=== PATIENT | male | born 1950 | race Caucasian/White ===

== ENCOUNTER 2023-03-28 05:19 | Emergency (ER) | payer MEDICARE, OTHER, SELFPAY ==
[2023-03-28] VITALS (89 sets, daily range): BP systolic 76–141; BP diastolic 35–65; PULSE 54–102; RESP 14–33; O2SAT 94–100; BMI 27.4
--- NOTE | 2023-03-28 05:23 | DI.RAD.S_ITS ---
PROCEDURE: XR CHEST 1V INDICATIONS: chest pain TECHNIQUE: One view of the chest was acquired. COMPARISON: None. FINDINGS: Surgical changes and devices: None. Lungs and pleura: Lungs are clear. No pleural effusions or pneumothorax. Mediastinum: Mediastinal contours appear normal. Heart size is normal. Bones and chest wall: No suspicious bony lesions. Overlying soft tissues appear unremarkable. IMPRESSION: No acute cardiopulmonary disease. No significant discrepancy with the conference manager radiology preliminary report. Dictated by: Dajuan Lewis M.D. on 03/28/2023 at 8:11 Approved by: Dajuan Lewis M.D. on 03/28/2023 at 8:11
--- NOTE | 2023-03-28 05:27 | ED_ITS ---
HPI - Chest Pain <Angelita Cruz DO - Last Filed: 03/29/23 08:35> General Chief Complaint: Chest Pain Stated Complaint: heartattack Time Seen by Provider: 03/28/23 05:26 History of Present Illness HPI narrative: This is a 72-year-old male with history of LAD stent 25 years ago, hypertension and dyslipidemia. Patient states he is often anticoagulants for at least 15 years. Patient states he developed chest pressure about an hour prior to arrival he feels short of breath he was sweaty, he is nauseated he has not been vomiting. He is felt dizzy but has not passed out. Patient denies any new swelling in his extremities. He denies any fevers, chills cold cough or congestion. Patient denies any GI or urinary symptoms otherwise besides nausea. Patient states he did not have a heart attack last time just had heart catheterization and stent placed. Patient states he is had left hip repair remotely, and right ankle surgery. He denies any drug allergies. Denies any tobacco, alcohol or illicit. Does not follow with cardiology regularly he does have a primary care in [place] where he livess. He is currently visiting the area. He did drive himself. Related Data Allergies Allergy/AdvReac Type Severity Reaction Status Date / Time No Known Allergies Allergy Verified 03/28/23 05:45 Review of Systems <Angelita Cruz DO - Last Filed: 03/29/23 08:35> Review of Systems ROS Unobtainable: All systems reviewed & are unremarkable except as noted in HPI and below Patient History <Angelita Cruz DO - Last Filed: 03/29/23 08:35> Social History Smoking Status: Current every day smoker Exam <Angelita Cruz DO - Last Filed: 03/29/23 08:35> Narrative Exam Narrative: GENERAL: Alert and oriented x three, elderly male slightly diaphoretic. HEENT: Head normocephalic, atraumatic, EOMI, pupils reactive, face symmetric, moist mucous membranes NECK: Supple, full range of motion CARDIOVASCULAR: Regular rate and rhythm without murmurs, rubs or gallops. No JVD. Swelling bilateral lower extremities. RESPIRATORY: Breath sounds equal bilaterally, no wheezes rales or rhonchi. Tachypneic. No accessory muscle use. ABDOMEN: Soft, nontender. Normoactive bowel sounds all 4 quadrants. No guarding or rebound, rigidity, no mass, no bruit or pulsatile mass. : No CVA tenderness EXTREMITIES: Normal range of motion, no clubbing or edema. Neurovascularly intact. 2+ pulses bilateral lower extremities. NEUROLOGICAL: Cranial nerves II through XII grossly intact. Moving all extremities SKIN: Warm, dry, no petechiae, no rashes or lesions. Initial Vital Signs Initial Vital Signs: Vital Signs Pulse Rate 74 03/28/23 05:31 Respiratory Rate 33 H 03/28/23 05:31 Blood Pressure 141/65 H 03/28/23 05:31 Pulse Oximetry 100 03/28/23 05:31 Oxygen Delivery Method Room Air 03/28/23 05:31 <Jair Reis DO - Last Filed: 03/28/23 18:02> Initial Vital Signs Initial Vital Signs: Vital Signs Pulse Rate 74 03/28/23 05:31 Respiratory Rate 33 H 03/28/23 05:31 Blood Pressure 141/65 H 03/28/23 05:31 Pulse Oximetry 100 03/28/23 05:31 Oxygen Delivery Method Room Air 03/28/23 05:31 Course <Angelita Cruz, DO - Last Filed: 03/29/23 08:35> Orders Ordered: Discontinued Medications Aspirin (Aspirin 81 Mg Chew Tab) 324 mg PO NOW ONE Stop: 03/28/23 05:24 Last Admin: 03/28/23 05:35 Dose: 324 mg Documented By: Fentanyl (Fentanyl 100 Mcg/2 Ml Inj) 50 mcg IV NOW ONE Stop: 03/28/23 05:49 Last Admin: 03/28/23 05:51 Dose: 50 mcg Documented By: Fentanyl (Fentanyl 100 Mcg/2 Ml Inj) 25 mcg IV NOW ONE Stop: 03/28/23 06:05 Last Admin: 03/28/23 06:09 Dose: 25 mcg Documented By: Fentanyl (Fentanyl 100 Mcg/2 Ml Inj) 25 mcg IV NOW ONE Stop: 03/28/23 06:05 Last Admin: 03/28/23 07:14 Dose: Not Given Documented By: Fentanyl (Fentanyl 100 Mcg/2 Ml Inj) 75 mcg 1 mcg/kg (75 mcg) IV NOW ONE Stop: 03/28/23 06:29 Last Admin: 03/28/23 06:33 Dose: 75 mcg Documented By: Heparin Sodium (Porcine) (Heparin 5,000 Unit/Ml Vial) 4,000 unit IV NOW ONE Stop: 03/28/23 11:26 Last Admin: 03/28/23 11:40 Dose: 4,000 unit Documented By: RB Sodium Chloride (Normal Saline 0.9%) 1,000 mls @ 1,000 mls/hr IV BOLUS ONE Stop: 03/28/23 06:47 Last Infusion: 03/28/23 06:49 Dose: 0 mls/hr Documented By: Admin: 03/28/23 05:45 Dose: 1,000 mls/hr Documented By: Sodium Chloride (Normal Saline 0.9%) 1,000 mls @ 1,000 mls/hr IV BOLUS ONE Stop: 03/28/23 08:34 Last Infusion: 03/28/23 08:50 Dose: 0 mls/hr Documented By: Admin: 03/28/23 07:44 Dose: 1,000 mls/hr Documented By: ROME Ceftriaxone Sodium 1,000 mg/ (Sodium Chloride) 100 mls @ 200 mls/hr IV NOW ONE Stop: 03/28/23 08:07 Last Infusion: 03/28/23 09:22 Dose: 0 mls/hr Documented By: Admin: 03/28/23 08:49 Dose: 200 mls/hr Documented By: ROME Sodium Chloride (Normal Saline 0.9%) 1,000 mls @ 125 mls/hr IV CONT QUOC Last Infusion: 03/28/23 18:56 Dose: 0 mls/hr Documented By: Admin: 03/28/23 10:25 Dose: 125 mls/hr Documented By: NEW Vancomycin HCl (Vancomycin) 1,000 mg in 200 mls @ 200 mls/hr IV NOW ONE Stop: 03/28/23 11:07 Last Infusion: 03/28/23 11:42 Dose: 0 mls/hr Documented By: Admin: 03/28/23 10:25 Dose: 200 mls/hr Documented By: NEW Heparin Sodium/Dextrose (Heparin Drip) 25,000 unit in 500 mls @ 17.962 mls/hr IV CONT QUOC; Protocol Last Titration: 03/28/23 18:59 Dose: 12 units/kg/hr, 17.962 mls/hr Documented By: KIM Co-signed By: ROME Admin: 03/28/23 11:43 Dose: 12 units/kg/hr, 17.962 mls/hr Documented By: RB Co-signed By: NEW Nitroglycerin (Nitroglycerin 0.4 Mg Sl Tab) 0.4 mg SL [id number] PRN PRN Reason: Chest Pain Last Admin: 03/28/23 05:35 Dose: 0.4 mg Documented By: Vital Signs Vital signs: Vital Signs - 8 hr 03/28/23 10:00 03/28/23 10:00 03/28/23 10:05 Pulse Rate 85 87 Respiratory Rate 23 24 Blood Pressure 105/52 L Pulse Oximetry 98 98 03/28/23 10:05 03/28/23 10:10 03/28/23 10:10 Pulse Rate 85 Respiratory Rate 25 H Blood Pressure 103/51 L 102/50 L Pulse Oximetry 97 03/28/23 10:15 03/28/23 10:15 03/28/23 10:20 Pulse Rate 88 89 Respiratory Rate 25 H 25 H Blood Pressure 100/51 L Pulse Oximetry 97 98 03/28/23 10:20 03/28/23 10:25 03/28/23 10:25 Pulse Rate 88 Respiratory Rate 25 H Blood Pressure 95/49 L 96/47 L Pulse Oximetry 98 03/28/23 10:30 03/28/23 10:30 03/28/23 10:35 Pulse Rate 87 Respiratory Rate 22 Blood Pressure 102/51 L 89/47 L Pulse Oximetry 98 03/28/23 10:35 03/28/23 10:40 03/28/23 10:40 Pulse Rate 91 H 89 Respiratory Rate 24 24 Blood Pressure 97/50 L Pulse Oximetry 98 97 03/28/23 10:45 03/28/23 10:45 03/28/23 10:50 Pulse Rate 89 Respiratory Rate 24 Blood Pressure 96/48 L 101/52 L Pulse Oximetry 97 03/28/23 10:50 03/28/23 10:55 03/28/23 10:55 Pulse Rate 92 H 91 H Respiratory Rate 27 H 27 H Blood Pressure 100/52 L Pulse Oximetry 96 96 03/28/23 11:00 03/28/23 11:00 03/28/23 11:05 Pulse Rate 91 H 92 H Respiratory Rate 26 H 24 Blood Pressure 102/50 L Pulse Oximetry 97 99 03/28/23 11:05 03/28/23 11:10 03/28/23 11:10 Pulse Rate 91 H Respiratory Rate 26 H Blood Pressure 104/51 L 103/51 L Pulse Oximetry 97 03/28/23 11:15 03/28/23 11:15 03/28/23 11:41 Pulse Rate 91 H Respiratory Rate 26 H Blood Pressure 102/49 L 105/45 L Pulse Oximetry 99 03/28/23 11:41 03/28/23 11:45 03/28/23 11:45 Pulse Rate 91 H 90 Respiratory Rate 26 H 23 Blood Pressure 97/51 L Pulse Oximetry 97 03/28/23 11:50 03/28/23 11:50 03/28/23 11:55 Pulse Rate 87 88 Respiratory Rate 27 H 26 H Blood Pressure 91/47 L Pulse Oximetry 97 96 03/28/23 11:55 03/28/23 12:00 03/28/23 12:00 Pulse Rate 92 H Respiratory Rate 26 H Blood Pressure 93/47 L 80/35 L Pulse Oximetry 97 03/28/23 12:03 03/28/23 12:03 03/28/23 12:04 Pulse Rate 90 Respiratory Rate 24 Blood Pressure 96/46 L 89/44 L Pulse Oximetry 96 03/28/23 12:04 03/28/23 12:06 03/28/23 12:06 Pulse Rate 89 91 H Respiratory Rate 25 H 23 Blood Pressure 96/54 L Pulse Oximetry 96 96 03/28/23 12:08 03/28/23 12:08 03/28/23 12:10 Pulse Rate 90 Respiratory Rate 23 Blood Pressure 97/52 L 98/51 L Pulse Oximetry 96 03/28/23 12:10 03/28/23 12:12 03/28/23 12:12 Pulse Rate 89 88 Respiratory Rate 24 24 Blood Pressure 100/50 L Pulse Oximetry 96 96 03/28/23 12:14 03/28/23 12:14 03/28/23 12:16 Pulse Rate 90 Respiratory Rate 22 Blood Pressure 100/51 L 97/51 L Pulse Oximetry 96 03/28/23 12:16 03/28/23 12:18 03/28/23 12:18 Pulse Rate 89 90 Respiratory Rate 24 24 Blood Pressure 97/50 L Pulse Oximetry 96 96 03/28/23 12:20 03/28/23 12:20 03/28/23 12:22 Pulse Rate 90 90 Respiratory Rate 24 24 Blood Pressure 102/50 L Pulse Oximetry 96 96 03/28/23 12:22 03/28/23 12:24 03/28/23 12:24 Pulse Rate 92 H Respiratory Rate 25 H Blood Pressure 103/52 L 106/53 L Pulse Oximetry 96 03/28/23 12:26 03/28/23 12:26 03/28/23 12:28 Pulse Rate 92 H 91 H Respiratory Rate 26 H 25 H Blood Pressure 102/55 L Pulse Oximetry 96 96 03/28/23 12:28 03/28/23 12:30 03/28/23 12:30 Pulse Rate 91 H Respiratory Rate 25 H Blood Pressure 101/54 L 104/55 L Pulse Oximetry 97 03/28/23 12:32 03/28/23 12:32 03/28/23 12:34 Pulse Rate 91 H 91 H Respiratory Rate 25 H 25 H Blood Pressure 104/54 L Pulse Oximetry 97 97 03/28/23 12:34 03/28/23 12:36 03/28/23 12:36 Pulse Rate 90 Respiratory Rate 25 H Blood Pressure 103/53 L 103/51 L Pulse Oximetry 97 03/28/23 12:38 03/28/23 12:38 03/28/23 12:46 Pulse Rate 91 H 90 Respiratory Rate 27 H 25 H Blood Pressure 103/52 L Pulse Oximetry 97 96 03/28/23 12:46 Pulse Rate Respiratory Rate Blood Pressure 103/51 L Pulse Oximetry <Jair Reis DO - Last Filed: 03/28/23 18:02> Orders Ordered: Discontinued Medications Aspirin (Aspirin 81 Mg Chew Tab) 324 mg PO NOW ONE Stop: 03/28/23 05:24 Last Admin: 03/28/23 05:35 Dose: 324 mg Documented By: Fentanyl (Fentanyl 100 Mcg/2 Ml Inj) 50 mcg IV NOW ONE Stop: 03/28/23 05:49 Last Admin: 03/28/23 05:51 Dose: 50 mcg Documented By: Fentanyl (Fentanyl 100 Mcg/2 Ml Inj) 25 mcg IV NOW ONE Stop: 03/28/23 06:05 Last Admin: 03/28/23 06:09 Dose: 25 mcg Documented By: Fentanyl (Fentanyl 100 Mcg/2 Ml Inj) 25 mcg IV NOW ONE Stop: 03/28/23 06:05 Last Admin: 03/28/23 07:14 Dose: Not Given Documented By: Fentanyl (Fentanyl 100 Mcg/2 Ml Inj) 75 mcg 1 mcg/kg (75 mcg) IV NOW ONE Stop: 03/28/23 06:29 Last Admin: 03/28/23 06:33 Dose: 75 mcg Documented By: Heparin Sodium (Porcine) (Heparin 5,000 Unit/Ml Vial) 4,000 unit IV NOW ONE Stop: 03/28/23 11:26 Last Admin: 03/28/23 11:40 Dose: 4,000 unit Documented By: RB Sodium Chloride (Normal Saline 0.9%) 1,000 mls @ 1,000 mls/hr IV BOLUS ONE Stop: 03/28/23 06:47 Last Infusion: 03/28/23 06:49 Dose: 0 mls/hr Documented By: Admin: 03/28/23 05:45 Dose: 1,000 mls/hr Documented By: Sodium Chloride (Normal Saline 0.9%) 1,000 mls @ 1,000 mls/hr IV BOLUS ONE Stop: 03/28/23 08:34 Last Infusion: 03/28/23 08:50 Dose: 0 mls/hr Documented By: Admin: 03/28/23 07:44 Dose: 1,000 mls/hr Documented By: RB Ceftriaxone Sodium 1,000 mg/ (Sodium Chloride) 100 mls @ 200 mls/hr IV NOW ONE Stop: 03/28/23 08:07 Last Infusion: 03/28/23 09:22 Dose: 0 mls/hr Documented By: Admin: 03/28/23 08:49 Dose: 200 mls/hr Documented By: RB Sodium Chloride (Normal Saline 0.9%) 1,000 mls @ 125 mls/hr IV CONT QUOC Last Infusion: 03/28/23 18:56 Dose: 0 mls/hr Documented By: Admin: 03/28/23 10:25 Dose: 125 mls/hr Documented By: NEW Vancomycin HCl (Vancomycin) 1,000 mg in 200 mls @ 200 mls/hr IV NOW ONE Stop: 03/28/23 11:07 Last Infusion: 03/28/23 11:42 Dose: 0 mls/hr Documented By: Admin: 03/28/23 10:25 Dose: 200 mls/hr Documented By: NEW Heparin Sodium/Dextrose (Heparin Drip) 25,000 unit in 500 mls @ 17.962 mls/hr IV CONT QUOC; Protocol Last Titration: 03/28/23 18:59 Dose: 12 units/kg/hr, 17.962 mls/hr Documented By: KIM Co-signed By: RB Admin: 03/28/23 11:43 Dose: 12 units/kg/hr, 17.962 mls/hr Documented By: ROME Co-signed By: NEW Nitroglycerin (Nitroglycerin 0.4 Mg Sl Tab) 0.4 mg SL [id number] PRN PRN Reason: Chest Pain Last Admin: 03/28/23 05:35 Dose: 0.4 mg Documented By: Vital Signs Vital signs: Vital Signs - 8 hr 03/28/23 10:00 03/28/23 10:00 03/28/23 10:05 Pulse Rate 85 87 Respiratory Rate 23 24 Blood Pressure 105/52 L Pulse Oximetry 98 98 03/28/23 10:05 03/28/23 10:10 03/28/23 10:10 Pulse Rate 85 Respiratory Rate 25 H Blood Pressure 103/51 L 102/50 L Pulse Oximetry 97 03/28/23 10:15 03/28/23 10:15 03/28/23 10:20 Pulse Rate 88 89 Respiratory Rate 25 H 25 H Blood Pressure 100/51 L Pulse Oximetry 97 98 03/28/23 10:20 03/28/23 10:25 03/28/23 10:25 Pulse Rate 88 Respiratory Rate 25 H Blood Pressure 95/49 L 96/47 L Pulse Oximetry 98 03/28/23 10:30 03/28/23 10:30 03/28/23 10:35 Pulse Rate 87 Respiratory Rate 22 Blood Pressure 102/51 L 89/47 L Pulse Oximetry 98 03/28/23 10:35 03/28/23 10:40 03/28/23 10:40 Pulse Rate 91 H 89 Respiratory Rate 24 24 Blood Pressure 97/50 L Pulse Oximetry 98 97 03/28/23 10:45 03/28/23 10:45 03/28/23 10:50 Pulse Rate 89 Respiratory Rate 24 Blood Pressure 96/48 L 101/52 L Pulse Oximetry 97 03/28/23 10:50 03/28/23 10:55 03/28/23 10:55 Pulse Rate 92 H 91 H Respiratory Rate 27 H 27 H Blood Pressure 100/52 L Pulse Oximetry 96 96 03/28/23 11:00 03/28/23 11:00 03/28/23 11:05 Pulse Rate 91 H 92 H Respiratory Rate 26 H 24 Blood Pressure 102/50 L Pulse Oximetry 97 99 03/28/23 11:05 03/28/23 11:10 03/28/23 11:10 Pulse Rate 91 H Respiratory Rate 26 H Blood Pressure 104/51 L 103/51 L Pulse Oximetry 97 03/28/23 11:15 03/28/23 11:15 03/28/23 11:41 Pulse Rate 91 H Respiratory Rate 26 H Blood Pressure 102/49 L 105/45 L Pulse Oximetry 99 03/28/23 11:41 03/28/23 11:45 03/28/23 11:45 Pulse Rate 91 H 90 Respiratory Rate 26 H 23 Blood Pressure 97/51 L Pulse Oximetry 97 03/28/23 11:50 03/28/23 11:50 03/28/23 11:55 Pulse Rate 87 88 Respiratory Rate 27 H 26 H Blood Pressure 91/47 L Pulse Oximetry 97 96 03/28/23 11:55 03/28/23 12:00 03/28/23 12:00 Pulse Rate 92 H Respiratory Rate 26 H Blood Pressure 93/47 L 80/35 L Pulse Oximetry 97 03/28/23 12:03 03/28/23 12:03 03/28/23 12:04 Pulse Rate 90 Respiratory Rate 24 Blood Pressure 96/46 L 89/44 L Pulse Oximetry 96 03/28/23 12:04 03/28/23 12:06 03/28/23 12:06 Pulse Rate 89 91 H Respiratory Rate 25 H 23 Blood Pressure 96/54 L Pulse Oximetry 96 96 03/28/23 12:08 03/28/23 12:08 03/28/23 12:10 Pulse Rate 90 Respiratory Rate 23 Blood Pressure 97/52 L 98/51 L Pulse Oximetry 96 03/28/23 12:10 03/28/23 12:12 03/28/23 12:12 Pulse Rate 89 88 Respiratory Rate 24 24 Blood Pressure 100/50 L Pulse Oximetry 96 96 03/28/23 12:14 03/28/23 12:14 03/28/23 12:16 Pulse Rate 90 Respiratory Rate 22 Blood Pressure 100/51 L 97/51 L Pulse Oximetry 96 03/28/23 12:16 03/28/23 12:18 03/28/23 12:18 Pulse Rate 89 90 Respiratory Rate 24 24 Blood Pressure 97/50 L Pulse Oximetry 96 96 03/28/23 12:20 03/28/23 12:20 03/28/23 12:22 Pulse Rate 90 90 Respiratory Rate 24 24 Blood Pressure 102/50 L Pulse Oximetry 96 96 03/28/23 12:22 03/28/23 12:24 03/28/23 12:24 Pulse Rate 92 H Respiratory Rate 25 H Blood Pressure 103/52 L 106/53 L Pulse Oximetry 96 03/28/23 12:26 03/28/23 12:26 03/28/23 12:28 Pulse Rate 92 H 91 H Respiratory Rate 26 H 25 H Blood Pressure 102/55 L Pulse Oximetry 96 96 03/28/23 12:28 03/28/23 12:30 03/28/23 12:30 Pulse Rate 91 H Respiratory Rate 25 H Blood Pressure 101/54 L 104/55 L Pulse Oximetry 97 03/28/23 12:32 03/28/23 12:32 03/28/23 12:34 Pulse Rate 91 H 91 H Respiratory Rate 25 H 25 H Blood Pressure 104/54 L Pulse Oximetry 97 97 03/28/23 12:34 03/28/23 12:36 03/28/23 12:36 Pulse Rate 90 Respiratory Rate 25 H Blood Pressure 103/53 L 103/51 L Pulse Oximetry 97 03/28/23 12:38 03/28/23 12:38 03/28/23 12:46 Pulse Rate 91 H 90 Respiratory Rate 27 H 25 H Blood Pressure 103/52 L Pulse Oximetry 97 96 03/28/23 12:46 Pulse Rate Respiratory Rate Blood Pressure 103/51 L Pulse Oximetry MDM - Chest Pain <Angelita Cruz DO - Last Filed: 03/29/23 08:35> Lab Data 03/28/23 05:27 03/28/23 05:27 Labs: Lab Results 0503/28/23 03/28/23 Range/Units 05:27 05:27 05:27 WBC 13.4 H (4.5-11.0) X10^3/uL RBC 5.18 (4.5-5.9) X10^6/uL Hgb 12.9 L (13.5-17.5) g/dL Hct 40.6 L (41-53) % MCV 78.4 L (80-100) fL MCH 25.0 L (26-34) PG MCHC 31.9 (30-36) % RDW 18.2 H (11.6-14.8) % Plt Count 299 (150-400) X10^3/uL Neut % (Auto) 44.6 L (50-75) % Lymph % (Auto) 38.8 (25-40) % [place] % (Auto) 10.4 (3-14) % Eos % (Auto) 5.5 H (2-4) % Baso % (Auto) 0.7 (0-2) % Neut # (Auto) 6000 (7524-0963) /uL Lymph # (Auto) 5200 H (4479-2017) /uL [place] # (Auto) 1400 H (0-900) /uL Eos # (Auto) 700 H (0-450) /uL Baso # (Auto) 100 (0-100) /uL ESR (0-15) MM/HR PT 19.9 H (10.1-12.7) SECONDS INR 1.7 H (0.9-1.3) APTT 24 L (26-36) SECONDS D-Dimer (<500) ng/ml Sodium 136 L (137-145) mmol/L Potassium 4.4 (3.4-5.1) mmol/L Chloride 102 (98-107) mmol/L Carbon Dioxide 18 L (22-32) mmol/L BUN 25 H (9-20) mg/dL Creatinine 1.12 (0.66-1.25) mg/dL Estimated GFR > 60 (>60) mL/min BUN/Creatinine Ratio 22.3 H (6-22) Glucose 111 H (80-110) mg/dL Lactate (0.7-2.1) mmol/L Calcium 10.1 (8.4-10.2) mg/dL Magnesium 1.8 (1.6-2.3) mg/dL Total Bilirubin 1.2 (0.2-1.3) mg/dL AST 100 H (17-59) IU/L ALT 98 H (<50) IU/L Alkaline Phosphatase 97 (38-126) U/L Total Creatine Kinase 162 (55-170) U/L CK-MB (CK-2) 2.25 (<2.37) ng/mL CK-MB (CK-2) Rel Index 1.4 L (1.5-5.0) % Troponin I < 0.012 (0.01-0.034) ng/mL C-Reactive Protein (<1.0) mg/dL NT-Pro-B Natriuret Pep (<125) pg/mL Total Protein 6.5 (6.3-8.2) g/dL Albumin 4.3 (3.5-5.0) g/dL Globulin 2.2 (1.7-4.1) g/dL Albumin/Globulin Ratio 2.0 (1.0-2.8) Lipase 230 (23-300) U/L Procalcitonin (<0.5) ng/mL Ur Bilirubin Confirm (Negative) Urine RBC (0-5/HPF) Urine WBC (0-5/HPF) Ur Squamous Epith Cells (0-5/HPF) Urine Bacteria (None) Ur Culture Indicated? SARS-CoV-2 (PCR) (Negative) Blood Type Antibody Screen 03/28/23 03/28/23 03/28/23 Range/Units 05:27 05:27 05:33 WBC (4.5-11.0) X10^3/uL RBC (4.5-5.9) X10^6/uL Hgb (13.5-17.5) g/dL Hct (41-53) % MCV (80-100) fL MCH (26-34) PG MCHC (30-36) % RDW (11.6-14.8) % Plt Count (150-400) X10^3/uL Neut % (Auto) (50-75) % Lymph % (Auto) (25-40) % [place] % (Auto) (3-14) % Eos % (Auto) (2-4) % Baso % (Auto) (0-2) % Neut # (Auto) (0476-7015) /uL Lymph # (Auto) (0506-0044) /uL [place] # (Auto) (0-900) /uL Eos # (Auto) (0-450) /uL Baso # (Auto) (0-100) /uL ESR (0-15) MM/HR PT (10.1-12.7) SECONDS INR (0.9-1.3) APTT (26-36) SECONDS D-Dimer 615 H (<500) ng/ml Sodium (137-145) mmol/L Potassium (3.4-5.1) mmol/L Chloride (98-107) mmol/L Carbon Dioxide (22-32) mmol/L BUN (9-20) mg/dL Creatinine (0.66-1.25) mg/dL Estimated GFR (>60) mL/min BUN/Creatinine Ratio (6-22) Glucose (80-110) mg/dL Lactate 5.7 H* (0.7-2.1) mmol/L Calcium (8.4-10.2) mg/dL Magnesium (1.6-2.3) mg/dL Total Bilirubin (0.2-1.3) mg/dL AST (17-59) IU/L ALT (<50) IU/L Alkaline Phosphatase (38-126) U/L Total Creatine Kinase (55-170) U/L CK-MB (CK-2) (<2.37) ng/mL CK-MB (CK-2) Rel Index (1.5-5.0) % Troponin I (0.01-0.034) ng/mL C-Reactive Protein (<1.0) mg/dL NT-Pro-B Natriuret Pep 41 (<125) pg/mL Total Protein (6.3-8.2) g/dL Albumin (3.5-5.0) g/dL Globulin (1.7-4.1) g/dL Albumin/Globulin Ratio (1.0-2.8) Lipase (23-300) U/L Procalcitonin (<0.5) ng/mL Ur Bilirubin Confirm (Negative) Urine RBC (0-5/HPF) Urine WBC (0-5/HPF) Ur Squamous Epith Cells (0-5/HPF) Urine Bacteria (None) Ur Culture Indicated? SARS-CoV-2 (PCR) (Negative) Blood Type Antibody Screen 03/28/23 03/28/23 03/28/23 Range/Units 05:37 06:01 08:00 WBC (4.5-11.0) X10^3/uL RBC (4.5-5.9) X10^6/uL Hgb (13.5-17.5) g/dL Hct (41-53) % MCV (80-100) fL MCH (26-34) PG MCHC (30-36) % RDW (11.6-14.8) % Plt Count (150-400) X10^3/uL Neut % (Auto) (50-75) % Lymph % (Auto) (25-40) % [place] % (Auto) (3-14) % Eos % (Auto) (2-4) % Baso % (Auto) (0-2) % Neut # (Auto) (6658-4347) /uL Lymph # (Auto) (4723-7716) /uL [place] # (Auto) (0-900) /uL Eos # (Auto) (0-450) /uL Baso # (Auto) (0-100) /uL ESR (0-15) MM/HR PT (10.1-12.7) SECONDS INR (0.9-1.3) APTT (26-36) SECONDS D-Dimer (<500) ng/ml Sodium (137-145) mmol/L Potassium (3.4-5.1) mmol/L Chloride (98-107) mmol/L Carbon Dioxide (22-32) mmol/L BUN (9-20) mg/dL Creatinine (0.66-1.25) mg/dL Estimated GFR (>60) mL/min BUN/Creatinine Ratio (6-22) Glucose (80-110) mg/dL Lactate (0.7-2.1) mmol/L Calcium (8.4-10.2) mg/dL Magnesium (1.6-2.3) mg/dL Total Bilirubin (0.2-1.3) mg/dL AST (17-59) IU/L ALT (<50) IU/L Alkaline Phosphatase (38-126) U/L Total Creatine Kinase (55-170) U/L CK-MB (CK-2) (<2.37) ng/mL CK-MB (CK-2) Rel Index (1.5-5.0) % Troponin I 0.090 H (0.01-0.034) ng/mL C-Reactive Protein (<1.0) mg/dL NT-Pro-B Natriuret Pep (<125) pg/mL Total Protein (6.3-8.2) g/dL Albumin (3.5-5.0) g/dL Globulin (1.7-4.1) g/dL Albumin/Globulin Ratio (1.0-2.8) Lipase (23-300) U/L Procalcitonin (<0.5) ng/mL Ur Bilirubin Confirm (Negative) Urine RBC (0-5/HPF) Urine WBC (0-5/HPF) Ur Squamous Epith Cells (0-5/HPF) Urine Bacteria (None) Ur Culture Indicated? SARS-CoV-2 (PCR) Negative (Negative) Blood Type A Negative Antibody Screen Negative 03/28/23 03/28/23 03/28/23 Range/Units 08:00 08:39 10:40 WBC (4.5-11.0) X10^3/uL RBC (4.5-5.9) X10^6/uL Hgb (13.5-17.5) g/dL Hct (41-53) % MCV (80-100) fL MCH (26-34) PG MCHC (30-36) % RDW (11.6-14.8) % Plt Count (150-400) X10^3/uL Neut % (Auto) (50-75) % Lymph % (Auto) (25-40) % [place] % (Auto) (3-14) % Eos % (Auto) (2-4) % Baso % (Auto) (0-2) % Neut # (Auto) (5400-3873) /uL Lymph # (Auto) (0387-3627) /uL [place] # (Auto) (0-900) /uL Eos # (Auto) (0-450) /uL Baso # (Auto) (0-100) /uL ESR (0-15) MM/HR PT (10.1-12.7) SECONDS INR (0.9-1.3) APTT (26-36) SECONDS D-Dimer (<500) ng/ml Sodium (137-145) mmol/L Potassium (3.4-5.1) mmol/L Chloride (98-107) mmol/L Carbon Dioxide (22-32) mmol/L BUN (9-20) mg/dL Creatinine (0.66-1.25) mg/dL Estimated GFR (>60) mL/min BUN/Creatinine Ratio (6-22) Glucose (80-110) mg/dL Lactate (0.7-2.1) mmol/L Calcium (8.4-10.2) mg/dL Magnesium (1.6-2.3) mg/dL Total Bilirubin (0.2-1.3) mg/dL AST (17-59) IU/L ALT (<50) IU/L Alkaline Phosphatase (38-126) U/L Total Creatine Kinase 142 (55-170) U/L CK-MB (CK-2) 3.47 H D (<2.37) ng/mL CK-MB (CK-2) Rel Index 2.4 (1.5-5.0) % Troponin I 0.256 H* (0.01-0.034) ng/mL C-Reactive Protein (<1.0) mg/dL NT-Pro-B Natriuret Pep (<125) pg/mL Total Protein (6.3-8.2) g/dL Albumin (3.5-5.0) g/dL Globulin (1.7-4.1) g/dL Albumin/Globulin Ratio (1.0-2.8) Lipase (23-300) U/L Procalcitonin 0.13 (<0.5) ng/mL Ur Bilirubin Confirm Negative (Negative) Urine RBC 0-1/hpf (0-5/HPF) Urine WBC 0-1/hpf (0-5/HPF) Ur Squamous Epith Cells 0-1 /hpf (0-5/HPF) Urine Bacteria None seen (None) Ur Culture Indicated? Cult not indicated SARS-CoV-2 (PCR) (Negative) Blood Type Antibody Screen 03/28/23 03/28/23 03/28/23 Range/Units 10:40 10:40 11:45 WBC (4.5-11.0) X10^3/uL RBC (4.5-5.9) X10^6/uL Hgb (13.5-17.5) g/dL Hct (41-53) % MCV (80-100) fL MCH (26-34) PG MCHC (30-36) % RDW (11.6-14.8) % Plt Count (150-400) X10^3/uL Neut % (Auto) (50-75) % Lymph % (Auto) (25-40) % [place] % (Auto) (3-14) % Eos % (Auto) (2-4) % Baso % (Auto) (0-2) % Neut # (Auto) (6705-1662) /uL Lymph # (Auto) (5804-7019) /uL [place] # (Auto) (0-900) /uL Eos # (Auto) (0-450) /uL Baso # (Auto) (0-100) /uL ESR 1 (0-15) MM/HR PT (10.1-12.7) SECONDS INR (0.9-1.3) APTT (26-36) SECONDS D-Dimer (<500) ng/ml Sodium (137-145) mmol/L Potassium (3.4-5.1) mmol/L Chloride (98-107) mmol/L Carbon Dioxide (22-32) mmol/L BUN (9-20) mg/dL Creatinine (0.66-1.25) mg/dL Estimated GFR (>60) mL/min BUN/Creatinine Ratio (6-22) Glucose (80-110) mg/dL Lactate 13.9 H* (0.7-2.1) mmol/L Calcium (8.4-10.2) mg/dL Magnesium (1.6-2.3) mg/dL Total Bilirubin (0.2-1.3) mg/dL AST (17-59) IU/L ALT (<50) IU/L Alkaline Phosphatase (38-126) U/L Total Creatine Kinase (55-170) U/L CK-MB (CK-2) (<2.37) ng/mL CK-MB (CK-2) Rel Index (1.5-5.0) % Troponin I (0.01-0.034) ng/mL C-Reactive Protein < 0.5 (<1.0) mg/dL NT-Pro-B Natriuret Pep (<125) pg/mL Total Protein (6.3-8.2) g/dL Albumin (3.5-5.0) g/dL Globulin (1.7-4.1) g/dL Albumin/Globulin Ratio (1.0-2.8) Lipase (23-300) U/L Procalcitonin (<0.5) ng/mL Ur Bilirubin Confirm (Negative) Urine RBC (0-5/HPF) Urine WBC (0-5/HPF) Ur Squamous Epith Cells (0-5/HPF) Urine Bacteria (None) Ur Culture Indicated? SARS-CoV-2 (PCR) (Negative) Blood Type Antibody Screen 03/28/23 03/28/23 03/28/23 Range/Units 15:40 15:40 17:03 WBC (4.5-11.0) X10^3/uL RBC (4.5-5.9) X10^6/uL Hgb (13.5-17.5) g/dL Hct (41-53) % MCV (80-100) fL MCH (26-34) PG MCHC (30-36) % RDW (11.6-14.8) % Plt Count (150-400) X10^3/uL Neut % (Auto) (50-75) % Lymph % (Auto) (25-40) % [place] % (Auto) (3-14) % Eos % (Auto) (2-4) % Baso % (Auto) (0-2) % Neut # (Auto) (9852-3703) /uL Lymph # (Auto) (4294-2737) /uL [place] # (Auto) (0-900) /uL Eos # (Auto) (0-450) /uL Baso # (Auto) (0-100) /uL ESR (0-15) MM/HR PT (10.1-12.7) SECONDS INR (0.9-1.3) APTT 67 H D (26-36) SECONDS D-Dimer (<500) ng/ml Sodium (137-145) mmol/L Potassium (3.4-5.1) mmol/L Chloride (98-107) mmol/L Carbon Dioxide (22-32) mmol/L BUN (9-20) mg/dL Creatinine (0.66-1.25) mg/dL Estimated GFR (>60) mL/min BUN/Creatinine Ratio (6-22) Glucose (80-110) mg/dL Lactate 9.3 H* (0.7-2.1) mmol/L Calcium (8.4-10.2) mg/dL Magnesium (1.6-2.3) mg/dL Total Bilirubin (0.2-1.3) mg/dL AST (17-59) IU/L ALT (<50) IU/L Alkaline Phosphatase (38-126) U/L Total Creatine Kinase 181 H (55-170) U/L CK-MB (CK-2) 4.46 H (<2.37) ng/mL CK-MB (CK-2) Rel Index 2.5 (1.5-5.0) % Troponin I 0.639 H* (0.01-0.034) ng/mL C-Reactive Protein (<1.0) mg/dL NT-Pro-B Natriuret Pep (<125) pg/mL Total Protein (6.3-8.2) g/dL Albumin (3.5-5.0) g/dL Globulin (1.7-4.1) g/dL Albumin/Globulin Ratio (1.0-2.8) Lipase (23-300) U/L Procalcitonin (<0.5) ng/mL Ur Bilirubin Confirm (Negative) Urine RBC (0-5/HPF) Urine WBC (0-5/HPF) Ur Squamous Epith Cells (0-5/HPF) Urine Bacteria (None) Ur Culture Indicated? SARS-CoV-2 (PCR) (Negative) Blood Type Antibody Screen Urine Dip Bedside Urine Glucose Negative Bedside Urine Bilirubin + 1 Bedside Urine Ketone - Negative Urine Specific Faxon 1.015 Bedside Urine Occult Blood - Negative Bedside Urine pH 5.0 Bedside Urine Protein + 30 Bedside Urine Urobilinogen - Negative Bedside Urine Nitrite - Negative Bedside Urine Leukocytes - Negative Esterase ECG Data Attestation: I personally reviewed and interpreted this ECG as follows: Prior ECG tracings: not available for review Interpretation: Sinus rhythm with marked sinus arrhythmia rate of 75 AK 152 QRS 84 and QTC 424. Possible elevation RVR. No other elevation in other leads RSR in 3 and AVF. No depression but hyperacute T-waves appreciated. Patient does not have prior for comparison EKG 2. Sinus rhythm with sinus arrhythmia, left axis deviation rate of 64 AK 154 QRS 84 and QTC 414. Patient appears to have continued hyperacute T-waves in lateral leads, RSR is present lead has some early ST depression but not appreciated clearly in 3 and AVF. MDM Narrative Medical decision making narrative: This is a 72-year-old male who comes in with complaint of chest pain started this evening. Patient noted after initial evaluation that he is had a week of lower back pain that goes down into his groin. That has been going on for a week he is supposed to to have imaging but he states this is new and then developed chest pain/pressure this evening. Patient has what appears to be hyperacute T-waves but I do not appreciate ST elevation, still concerned about cardiac source but also concerned about vascular cause and CT angio chest abdomen pelvis was ordered. Patient had 1 nitro made minimal improvement his chest pain but did drop his pressure. No additional were given with given fentanyl instead as well as a fluid bolus. Patient not hypotensive initially upon arrival, pulses been in the 60s. Patient's O2 sat is 98% making pulmonary emboli less likely source. CT angio is pending. Patient signed out to Dr. Reis while awaiting repeat troponins and CTA. Dr Reis: Received turned over. Reviewed patient's history and physical and workup up to this point. Introduced myself to the patient and performed my own independent exam. Patient states he was still having chest discomfort and arm discomfort upon my initial evaluation. The initial CTA of his chest abdomen and pelvis did not show any indication of aneurysmal dissection or aneurysm however there initially was some concern about a left-sided subsegmental pulmonary embolism. Over-read by the day radiologist states that this is probably unlikel y. Patient did have episodes of hypotension. I felt that even if there was a pulmonary embolism it would not be large enough to cause this level of hypotension. Further review of his labs does show that he has a leukocytosis which could very well be in the setting of ACS or sepsis. A lactate was ordered which was elevated. At this point blood cultures were ordered. Antibiotics administered. More fluids were administered. Repeat troponin was elevated. This was repeated 2 more times each time higher than the previous. Heparin was started once the patient was above the AMI cut off. Patient's lactate significantly increased and then after continued resuscitation decreased. Still have some concern about a septic picture although I do not have a specific source. His exam is not consistent with pneumonia, meningitis, intra-abdominal infection, urinary tract infection or skin infection. I did discuss the case with Dr. Carbajal with Cardiology soon after my assumption of care who recommended an echocardiogram. This echocardiogram was relatively unremarkable except for an ejection fraction of greater than 80%. Patient clinically improved with continued resuscitation. His hypotension resolved. I did discuss the case with Dr. Camilo hospitalist on-call [facility] who accepts the patient to transfer. Patient is stable for transport. I did discuss the incide ntal findings of the lung nodule noted on the CT scan with the patient and his . I recommended they follow-up with the primary doctor for this. Patient also has had a colonoscopy within the past and I did discuss the findings of his colon on the CT scan as well and recommended that he follow-up with this. <Jair Reis, - Last Filed: 03/28/23 18:02> Medical Records Data Attestation: I reviewed the patient's medical records. Lab Data Attestation: I reviewed the patient's lab results. Labs: Lab Results 03/28/23 03/28/23 03/28/23 Range/Units 05:27 05:27 05:27 WBC 13.4 H (4.5-11.0) X10^3/uL RBC 5.18 (4.5-5.9) X10^6/uL Hgb 12.9 L (13.5-17.5) g/dL Hct 40.6 L (41-53) % MCV 78.4 L (80-100) fL MCH 25.0 L (26-34) PG MCHC 31.9 (30-36) % RDW 18.2 H (11.6-14.8) % Plt Count 299 (150-400) X10^3/uL Neut % (Auto) 44.6 L (50-75) % Lymph % (Auto) 38.8 (25-40) % [place] % (Auto) 10.4 (3-14) % Eos % (Auto) 5.5 H (2-4) % Baso % (Auto) 0.7 (0-2) % Neut # (Auto) 6000 (2196-3215) /uL Lymph # (Auto) 5200 H (2030-3351) /uL [place] # (Auto) 1400 H (0-900) /uL Eos # (Auto) 700 H (0-450) /uL Baso # (Auto) 100 (0-100) /uL ESR (0-15) MM/HR PT 19.9 H (10.1-12.7) SECONDS INR 1.7 H (0.9-1.3) APTT 24 L (26-36) SECONDS D-Dimer (<500) ng/ml Sodium 136 L (137-145) mmol/L Potassium 4.4 (3.4-5.1) mmol/L Chloride 102 (98-107) mmol/L Carbon Dioxide 18 L (22-32) mmol/L BUN 25 H (9-20) mg/dL Creatinine 1.12 (0.66-1.25) mg/dL Estimated GFR > 60 (>60) mL/min BUN/Creatinine Ratio 22.3 H (6-22) Glucose 111 H (80-110) mg/dL Lactate (0.7-2.1) mmol/L Calcium 10.1 (8.4-10.2) mg/dL Magnesium 1.8 (1.6-2.3) mg/dL Total Bilirubin 1.2 (0.2-1.3) mg/dL AST 100 H (17-59) IU/L ALT 98 H (<50) IU/L Alkaline Phosphatase 97 (38-126) U/L Total Creatine Kinase 162 (55-170) U/L CK-MB (CK-2) 2.25 (<2.37) ng/mL CK-MB (CK-2) Rel Index 1.4 L (1.5-5.0) % Troponin I < 0.012 (0.01-0.034) ng/mL C-Reactive Protein (<1.0) mg/dL NT-Pro-B Natriuret Pep (<125) pg/mL Total Protein 6.5 (6.3-8.2) g/dL Albumin 4.3 (3.5-5.0) g/dL Globulin 2.2 (1.7-4.1) g/dL Albumin/Globulin Ratio 2.0 (1.0-2.8) Lipase 230 (23-300) U/L Procalcitonin (<0.5) ng/mL Ur Bilirubin Confirm (Negative) Urine RBC (0-5/HPF) Urine WBC (0-5/HPF) Ur Squamous Epith Cells (0-5/HPF) Urine Bacteria (None) Ur Culture Indicated? SARS-CoV-2 (PCR) (Negative) Blood Type Antibody Screen 03/28/23 03/28/23 03/28/23 Range/Units 05:27 05:27 05:33 WBC (4.5-11.0) X10^3/uL RBC (4.5-5.9) X10^6/uL Hgb (13.5-17.5) g/dL Hct (41-53) % MCV (80-100) fL MCH (26-34) PG MCHC (30-36) % RDW (11.6-14.8) % Plt Count (150-400) X10^3/uL Neut % (Auto) (50-75) % Lymph % (Auto) (25-40) % [place] % (Auto) (3-14) % Eos % (Auto) (2-4) % Baso % (Auto) (0-2) % Neut # (Auto) (7324-0700) /uL Lymph # (Auto) (3309-6010) /uL [place] # (Auto) (0-900) /uL Eos # (Auto) (0-450) /uL Baso # (Auto) (0-100) /uL ESR (0-15) MM/HR PT (10.1-12.7) SECONDS INR (0.9-1.3) APTT (26-36) SECONDS D-Dimer 615 H (<500) ng/ml Sodium (137-145) mmol/L Potassium (3.4-5.1) mmol/L Chloride (98-107) mmol/L Carbon Dioxide (22-32) mmol/L BUN (9-20) mg/dL Creatinine (0.66-1.25) mg/dL Estimated GFR (>60) mL/min BUN/Creatinine Ratio (6-22) Glucose (80-110) mg/dL Lactate 5.7 H* (0.7-2.1) mmol/L Calcium (8.4-10.2) mg/dL Magnesium (1.6-2.3) mg/dL Total Bilirubin (0.2-1.3) mg/dL AST (17-59) IU/L ALT (<50) IU/L Alkaline Phosphatase (38-126) U/L Total Creatine Kinase (55-170) U/L CK-MB (CK-2) (<2.37) ng/mL CK-MB (CK-2) Rel Index (1.5-5.0) % Troponin I (0.01-0.034) ng/mL C-Reactive Protein (<1.0) mg/dL NT-Pro-B Natriuret Pep 41 (<125) pg/mL Total Protein (6.3-8.2) g/dL Albumin (3.5-5.0) g/dL Globulin (1.7-4.1) g/dL Albumin/Globulin Ratio (1.0-2.8) Lipase (23-300) U/L Procalcitonin (<0.5) ng/mL Ur Bilirubin Confirm (Negative) Urine RBC (0-5/HPF) Urine WBC (0-5/HPF) Ur Squamous Epith Cells (0-5/HPF) Urine Bacteria (None) Ur Culture Indicated? SARS-CoV-2 (PCR) (Negative) Blood Type Antibody Screen 03/28/23 03/28/23 03/28/23 Range/Units 05:37 06:01 08:00 WBC (4.5-11.0) X10^3/uL RBC (4.5-5.9) X10^6/uL Hgb (13.5-17.5) g/dL Hct (41-53) % MCV (80-100) fL MCH (26-34) PG MCHC (30-36) % RDW (11.6-14.8) % Plt Count (150-400) X10^3/uL Neut % (Auto) (50-75) % Lymph % (Auto) (25-40) % [place] % (Auto) (3-14) % Eos % (Auto) (2-4) % Baso % (Auto) (0-2) % Neut # (Auto) (9760-2648) /uL Lymph # (Auto) (7794-7917) /uL [place] # (Auto) (0-900) /uL Eos # (Auto) (0-450) /uL Baso # (Auto) (0-100) /uL ESR (0-15) MM/HR PT (10.1-12.7) SECONDS INR (0.9-1.3) APTT (26-36) SECONDS D-Dimer (<500) ng/ml Sodium (137-145) mmol/L Potassium (3.4-5.1) mmol/L Chloride (98-107) mmol/L Carbon Dioxide (22-32) mmol/L BUN (9-20) mg/dL Creatinine (0.66-1.25) mg/dL Estimated GFR (>60) mL/min BUN/Creatinine Ratio (6-22) Glucose (80-110) mg/dL Lactate (0.7-2.1) mmol/L Calcium (8.4-10.2) mg/dL Magnesium (1.6-2.3) mg/dL Total Bilirubin (0.2-1.3) mg/dL AST (17-59) IU/L ALT (<50) IU/L Alkaline Phosphatase (38-126) U/L Total Creatine Kinase (55-170) U/L CK-MB (CK-2) (<2.37) ng/mL CK-MB (CK-2) Rel Index (1.5-5.0) % Troponin I 0.090 H (0.01-0.034) ng/mL C-Reactive Protein (<1.0) mg/dL NT-Pro-B Natriuret Pep (<125) pg/mL Total Protein (6.3-8.2) g/dL Albumin (3.5-5.0) g/dL Globulin (1.7-4.1) g/dL Albumin/Globulin Ratio (1.0-2.8) Lipase (23-300) U/L Procalcitonin (<0.5) ng/mL Ur Bilirubin Confirm (Negative) Urine RBC (0-5/HPF) Urine WBC (0-5/HPF) Ur Squamous Epith Cells (0-5/HPF) Urine Bacteria (None) Ur Culture Indicated? SARS-CoV-2 (PCR) Negative (Negative) Blood Type A Negative Antibody Screen Negative 03/28/23 03/28/23 03/28/23 Range/Units 08:00 08:39 10:40 WBC (4.5-11.0) X10^3/uL RBC (4.5-5.9) X10^6/uL Hgb (13.5-17.5) g/dL Hct (41-53) % MCV (80-100) fL MCH (26-34) PG MCHC (30-36) % RDW (11.6-14.8) % Plt Count (150-400) X10^3/uL Neut % (Auto) (50-75) % Lymph % (Auto) (25-40) % [place] % (Auto) (3-14) % Eos % (Auto) (2-4) % Baso % (Auto) (0-2) % Neut # (Auto) (2710-4004) /uL Lymph # (Auto) (6672-0352) /uL [place] # (Auto) (0-900) /uL Eos # (Auto) (0-450) /uL Baso # (Auto) (0-100) /uL ESR (0-15) MM/HR PT (10.1-12.7) SECONDS INR (0.9-1.3) APTT (26-36) SECONDS D-Dimer (<500) ng/ml Sodium (137-145) mmol/L Potassium (3.4-5.1) mmol/L Chloride (98-107) mmol/L Carbon Dioxide (22-32) mmol/L BUN (9-20) mg/dL Creatinine (0.66-1.25) mg/dL Estimated GFR (>60) mL/min BUN/Creatinine Ratio (6-22) Glucose (80-110) mg/dL Lactate (0.7-2.1) mmol/L Calcium (8.4-10.2) mg/dL Magnesium (1.6-2.3) mg/dL Total Bilirubin (0.2-1.3) mg/dL AST (17-59) IU/L ALT (<50) IU/L Alkaline Phosphatase (38-126) U/L Total Creatine Kinase 142 (55-170) U/L CK-MB (CK-2) 3.47 H D (<2.37) ng/mL CK-MB (CK-2) Rel Index 2.4 (1.5-5.0) % Troponin I 0.256 H* (0.01-0.034) ng/mL C-Reactive Protein (<1.0) mg/dL NT-Pro-B Natriuret Pep (<125) pg/mL Total Protein (6.3-8.2) g/dL Albumin (3.5-5.0) g/dL Globulin (1.7-4.1) g/dL Albumin/Globulin Ratio (1.0-2.8) Lipase (23-300) U/L Procalcitonin 0.13 (<0.5) ng/mL Ur Bilirubin Confirm Negative (Negative) Urine RBC 0-1/hpf (0-5/HPF) Urine WBC 0-1/hpf (0-5/HPF) Ur Squamous Epith Cells 0-1 /hpf (0-5/HPF) Urine Bacteria None seen (None) Ur Culture Indicated? Cult not indicated SARS-CoV-2 (PCR) (Negative) Blood Type Antibody Screen 03/28/23 03/28/23 03/28/23 Range/Units 10:40 10:40 11:45 WBC (4.5-11.0) X10^3/uL RBC (4.5-5.9) X10^6/uL Hgb (13.5-17.5) g/dL Hct (41-53) % MCV (80-100) fL MCH (26-34) PG MCHC (30-36) % RDW (11.6-14.8) % Plt Count (150-400) X10^3/uL Neut % (Auto) (50-75) % Lymph % (Auto) (25-40) % [place] % (Auto) (3-14) % Eos % (Auto) (2-4) % Baso % (Auto) (0-2) % Neut # (Auto) (1184-2567) /uL Lymph # (Auto) (7405-1461) /uL [place] # (Auto) (0-900) /uL Eos # (Auto) (0-450) /uL Baso # (Auto) (0-100) /uL ESR 1 (0-15) MM/HR PT (10.1-12.7) SECONDS INR (0.9-1.3) APTT (26-36) SECONDS D-Dimer (<500) ng/ml Sodium (137-145) mmol/L Potassium (3.4-5.1) mmol/L Chloride (98-107) mmol/L Carbon Dioxide (22-32) mmol/L BUN (9-20) mg/dL Creatinine (0.66-1.25) mg/dL Estimated GFR (>60) mL/min BUN/Creatinine Ratio (6-22) Glucose (80-110) mg/dL Lactate 13.9 H* (0.7-2.1) mmol/L Calcium (8.4-10.2) mg/dL Magnesium (1.6-2.3) mg/dL Total Bilirubin (0.2-1.3) mg/dL AST (17-59) IU/L ALT (<50) IU/L Alkaline Phosphatase (38-126) U/L Total Creatine Kinase (55-170) U/L CK-MB (CK-2) (<2.37) ng/mL CK-MB (CK-2) Rel Index (1.5-5.0) % Troponin I (0.01-0.034) ng/mL C-Reactive Protein < 0.5 (<1.0) mg/dL NT-Pro-B Natriuret Pep (<125) pg/mL Total Protein (6.3-8.2) g/dL Albumin (3.5-5.0) g/dL Globulin (1.7-4.1) g/dL Albumin/Globulin Ratio (1.0-2.8) Lipase (23-300) U/L Procalcitonin (<0.5) ng/mL Ur Bilirubin Confirm (Negative) Urine RBC (0-5/HPF) Urine WBC (0-5/HPF) Ur Squamous Epith Cells (0-5/HPF) Urine Bacteria (None) Ur Culture Indicated? SARS-CoV-2 (PCR) (Negative) Blood Type Antibody Screen 03/28/23 03/28/23 03/28/23 Range/Units 15:40 15:40 17:03 WBC (4.5-11.0) X10^3/uL RBC (4.5-5.9) X10^6/uL Hgb (13.5-17.5) g/dL Hct (41-53) % MCV (80-100) fL MCH (26-34) PG MCHC (30-36) % RDW (11.6-14.8) % Plt Count (150-400) X10^3/uL Neut % (Auto) (50-75) % Lymph % (Auto) (25-40) % [place] % (Auto) (3-14) % Eos % (Auto) (2-4) % Baso % (Auto) (0-2) % Neut # (Auto) (0343-2456) /uL Lymph # (Auto) (6335-8491) /uL [place] # (Auto) (0-900) /uL Eos # (Auto) (0-450) /uL Baso # (Auto) (0-100) /uL ESR (0-15) MM/HR PT (10.1-12.7) SECONDS INR (0.9-1.3) APTT 67 H D (26-36) SECONDS D-Dimer (<500) ng/ml Sodium (137-145) mmol/L Potassium (3.4-5.1) mmol/L Chloride (98-107) mmol/L Carbon Dioxide (22-32) mmol/L BUN (9-20) mg/dL Creatinine (0.66-1.25) mg/dL Estimated GFR (>60) mL/min BUN/Creatinine Ratio (6-22) Glucose (80-110) mg/dL Lactate 9.3 H* (0.7-2.1) mmol/L Calcium (8.4-10.2) mg/dL Magnesium (1.6-2.3) mg/dL Total Bilirubin (0.2-1.3) mg/dL AST (17-59) IU/L ALT (<50) IU/L Alkaline Phosphatase (38-126) U/L Total Creatine Kinase 181 H (55-170) U/L CK-MB (CK-2) 4.46 H (<2.37) ng/mL CK-MB (CK-2) Rel Index 2.5 (1.5-5.0) % Troponin I 0.639 H* (0.01-0.034) ng/mL C-Reactive Protein (<1.0) mg/dL NT-Pro-B Natriuret Pep (<125) pg/mL Total Protein (6.3-8.2) g/dL Albumin (3.5-5.0) g/dL Globulin (1.7-4.1) g/dL Albumin/Globulin Ratio (1.0-2.8) Lipase (23-300) U/L Procalcitonin (<0.5) ng/mL Ur Bilirubin Confirm (Negative) Urine RBC (0-5/HPF) Urine WBC (0-5/HPF) Ur Squamous Epith Cells (0-5/HPF) Urine Bacteria (None) Ur Culture Indicated? SARS-CoV-2 (PCR) (Negative) Blood Type Antibody Screen Urine Dip Bedside Urine Glucose Negative Bedside Urine Bilirubin + 1 Bedside Urine Ketone - Negative Urine Specific Faxon 1.015 Bedside Urine Occult Blood - Negative Bedside Urine pH 5.0 Bedside Urine Protein + 30 Bedside Urine Urobilinogen - Negative Bedside Urine Nitrite - Negative Bedside Urine Leukocytes - Negative Esterase Imaging Data Chest x-ray: Radiologist's Impression: ROCEDURE:? XR CHEST 1V ? INDICATIONS:? chest pain ? TECHNIQUE:? One view of the chest was acquired.? ? COMPARISON:? None. ? FINDINGS:? ? Surgical changes and devices:? None.? ? Lungs and pleura:? Lungs are clear.? No pleural effusions or pneumothorax.? ? Mediastinum:? Mediastinal contours appear normal.? Heart size is normal.? ? Bones and chest wall:? No suspicious bony lesions.? Overlying soft tissues appear unremarkable.? ? IMPRESSION:? No acute cardiopulmonary disease. ? ? No significant discrepancy with the rn shift mgr radiology preliminary report. CT chest/abd/pelvis: Radiologist's Impression: PROCEDURE:? CT ANGIO CHEST ABDOMEN PELVIS ? INDICATIONS:? chest pain new, back pain last week down belly ? TECHNIQUE:? Precontrast 5 mm thick sections acquired from the lung apices to the iliac crests.? After the administration of intravenous contrast, 2.5 mm thick sections again acquired from the lung apices to the iliac crests.? Maximum intensity projection (MIP) oblique sagittal and coronal reformats were then acquired.? For radiation dose reduction, the following was used:? automated exposure control.? ? COMPARISON:? None. ? FINDINGS:? Image quality:? Excellent.? ? AORTA:? No evidence of acute aortic syndrome.? No aortic aneurysm. ? CHEST:? Lungs and pleura:? No acute airspace opacities.? No pleural effusions or pneumothorax.? Central and peripheral airways are patent and normal in caliber.? 8 x 5 mm solid nodule, right lower lobe (series 8, image 199). ? Mediastinum:? Heart size is enlarged.? No pericardial effusion.? No mediastinal or hilar adenopathy by size criteria.? Central pulmonary arteries are normal in size.? Esophagus is normal in caliber.? Moderate hiatal hernias.? Subcentimeter filling defects within the lower lobes could be motion artifact or subsegmental pulmonary emboli. ? Bones and chest wall:? No axillary adenopathy by size criteria.? Thyroid gland is unremarkable.? No suspicious bony lesions.? No vertebral body compression fractures.? ? ? ABDOMEN:? Vasculature:? Celiac trunk and mesenteric arteries are patent.? Renal arteries are also patent.? ? Solid organs:? Liver is normal in size and enhancement.? Gallbladder is unremarkable .? Biliary system is non dilated.? Pancreas enhances normally.? Spleen is normal in size and enhancement.? No adrenal nodules.? Both kidneys are normal in size and enhan cement, without hydronephrosis.? Punctate, bilateral nonobstructing stones.? Macro no complex ? Peritoneum and bowel:? No free fluid or air.? Bowel loops are normal in caliber and wall thickness.? Colonic diverticulosis without evidence of diverticulitis.? Decompressed sigmoid colon. ? Nodes and vessels:? No retroperitoneal or mesenteric adenopathy by size criteria.? Inferior vena cava is normal in morphology.? ? Miscellaneous:? No ventral hernias.? ? ? PELVIS:? Genitourinary:? Bladder wall thickness is normal.? ? Miscellaneous:? No inguinal hernias or adenopathy.? Left inguinal hernia contain ing fluid ? Bones:? No suspicious bony lesions.? No vertebral body compression fractures.? ? ? IMPRESSION:? No evidence of acute aortic syndrome. ? Subsegmental filling defects within the lower lobes, probably artifact of motion artifact, less likely pulmonary emboli. ? 8 x 5 mm solid nodule in the right lower lobe.? Recommend follow-up in 6-12 months. ? Decompression of the sigmoid colon, with lack of colonic diverticula.? Underlying mass not excluded, but no adjacent adenopathy to confirm.? Consider colonoscopy if not performed recently. ? Echo: Radiologist's Impression: [facility]? +---------+ : ? :? [address] ? : ? : : ? :? [place] ? : ? : : ? :? [id number] ? : ? : : ? : ? Phone: [phone] : ? : +[phone]? [phone]? +---------+ ? Echocardiogram Report + + :Name: ARELI RODRIGUEZ? Study Date: 03/28/2023 ? Height: 65 in? : :[facility] ? ? ReadingLocation: ? Weight: 165 lb : : ? Gender: Male ? BSA: 1.8 m2? ? : :: 1950? Age: 72 yrs? BP: 101/52 mmHg: :Reason For Study: CHEST PAIN ? : :Ordering Physician: MARIELLA,? : :JAIR? Performed By: Lauryn Garcia? : :Referring: JAIR REIS ? : + + Interpretation Summary 1) Normal left ventricular size and thickness with hyperdynamic systolic function (EF over 80%). 2) Normal right ventricular size with hyperdynamic function. 3) No signifcant valvular abnormaltiies. 4) No prior Echo available for comparison. ? Procedure: ? A two-dimensional transthoracic echocardiogram with color flow and Doppler was performed. The study quality was technically good. There is no prior echocardiogram noted for this patient. The patient was in sinus rhythm with heart rates between 89-95 bpm during the exam. Left Ventricle: ? The left ventricle is normal in size. There is normal left ventricular wall thickness. Proximal septal thickening is noted. The ejection fraction is estimated to be >80%. The left ventricle is markedly hyperdynamic. There are no focal wall motion abnormalities. Right Ventricle: ? The right ventricle is normal size. The right ventricle is hyperdynamic. Atria: ? The left atrium is moderately dilated. Right atrial size is normal. The right atrium is mildly dilated. There is no Doppler evidence for an interatrial shunt. Mitral Valve: ? The mitral valve leaflets appear mildly thickened, but open well. There is mild mitral regurgitation. Aortic Valve: ? The aortic valve is trileaflet. The aortic valve is slightly calcified. The aortic valve opens well. There is no aortic valve stenosis. No aortic regurgitation is present. Tricuspid Valve: ? The tricuspid valve leaflets are thin and pliable. There is a trace or physiologic amount of tricuspid regurgitation. Pulmonary artery pressures cannot be estimated because of the lack of a measurable TR jet velocity. Pulmonic Valve: ? The pulmonic valve leaflets are thin and pliable; valve motion is normal. There is trace pulmonic regurgitation. Great Vessels: ? The aortic root is normal size. The ascending aorta is at the upper limits of normal in size. The IVC is of normal diameter and collapses greater than 50% with a sniff. This suggests a low right atrial pressure of 3 mm Hg. Pericardium/ Pleura ? There is no pericardial effusion. There is no pleural effusion. ? MMode/2D Measurements & Calculations LVIDd: 5.0 cm? LVOT diam: 2.0 cm LVIDs: 2.1 cm? Ao root diam: 3.0 cm FS: 58.1 % ? asc Aorta Diam: 3.9 cm IVSd: 1.1 cm ? Ao Arch Diam (Prox Trans): 3.3 cm LVPWd: 0.87 cm LV espinoza. diameter/BSA (cm/m^2): 2.7 LV sys. diameter/BSA (cm/m^2): 1.2 ? LA A2 area: 22.1 cm2 ? RA long axis: 5.5 cm LA A4 area: 21.1 cm2 ? RA area: 19.5 cm2 LA length (vol): 5.6 cm? RA vol: 58.4 ml LA vol: 70.5 ml? RA : 32.1 ml/m2 LA vol index: 38.7 ml/m2 ? IVC diam: 1.5 cm ? RVD1 (basal): 4.0 cm TAPSE: 2.8 cm ? Doppler Measurements & Calculations Ao V2 max: 272.0 cm/sec ? MV E max gene: 103.5 cm/sec Ao V2 mean: 199.4 cm/sec? MV A max gene: 135.2 cm/sec Ao max P.6 mmHg? MV E/A: 0.77 Ao mean P.6 mmHg ? Med Peak E' Gene: 7.4 cm/sec Ao V2 VTI: 45.5 cm? E/E' med: 13.9 ? Lat Peak E' Gene: 13.2 cm/sec ? E/E' lat: 7.8 ? E/e' average: 10.9 ? MV dec time: 0.15 sec ? PA V2 max: 175.6 cm/sec PA V2 mean: 139.0 cm/sec PA mean P.3 mmHg ? Reading Physician:11:51 AM [facility] Narrative Medical decision making narrative: This is a 72-year-old male who comes in with complaint of chest pain started this evening. Patient noted after initial evaluation that he is had a week of lower back pain that goes down into his groin. That has been going on for a week he is supposed to to have imaging but he states this is new and then developed chest pain/pressure this evening. Patient has what appears to be hyperacute T-waves but I do not appreciate ST elevation, still concerned about cardiac source but also concerned about vascular cause and CT angio chest abdomen pelvis was ordered. Patient had 1 nitro made minimal improvement his chest pain but did drop his pressure. No additional were given with given fentanyl instead as well as a fluid bolus. Patient not hypotensive initially upon arrival, pulses been in the 60s. Patient's O2 sat is 98% making pulmonary emboli less likely source. Dr Reis: Received turned over. Reviewed patient's history and physical and workup up to this point. Introduced myself to the patient and performed my own independent exam. Patient states he was still having chest discomfort and arm discomfort upon my initial evaluation. The initial CTA of his chest abdomen and pelvis did not show any indication of aneurysmal dissection or aneurysm however there initially was some concern about a left-sided subsegmental pulmonary embolism. Over-read by the day radiologist states that this is probably unlikely. Patient did have episodes of hypotension. I felt that even if there was a pulmonary embolism it would not be large enough to cause this level of hypotension. Further review of his labs does show that he has a leukocytosis which could very well be in the setting of ACS or sepsis. A lactate was ordered which was elevated. At this point blood cultures were ordered. Antibiotics administered. More fluids were administered. Repeat troponin was elevated. This was repeated 2 more times each time higher than the previous. Heparin was started once the patient was above the AMI cut off. Patient's lactate significantly increased and then after continued resuscitation decreased. Still have some concern about a septic picture although I do not have a specific source. His exam is not consistent with pneumonia, meningitis, intra-abdominal infection, urinary tract infection or skin infection. I did discuss the case with Dr. Carbajal with Cardiology soon after my assumption of care who recommended an echocardiogram. This echocardiogram was relatively unremarkable except for an ejection fraction of greater than 80%. Patient clinically improved with cont inued resuscitation. His hypotension resolved. I did discuss the case with Dr. Camilo hospitalist on-call [facility] who accepts the patient to transfer. Patient is stable for transport. I did discuss the incidental findings of the lung nodule noted on the CT scan with the patient and his . I recommended they follow-up with the primary doctor for this. Patient also has had a colonoscopy within the past and I did discuss the findings of his colon on the CT scan as well and recommended that he follow-up with this. Discharge Plan Departure Patient Disposition: [facility] Clinical Impression: Lung nodule, Non-ST elevation [place] (NSTEMI) Stand Alone Forms: Patient Portal/API
[2023-03-28] MEDS: ASPIRIN 81 MG CHEW TAB 324 MG PO (05:35)
[2023-03-28] MEDS: NITROGLYCERIN 0.4 MG SL TAB SL (05:35)
[2023-03-28 05:36] LABS: Add Manual Diff / Slide Review NO; Basophils Absolute Auto 100 /uL (0-100); Basophils Percent Auto 0.7 % (0-2); Eosinophils Absolute Auto 700 /uL (0-450); Eosinophils Percent Auto 5.5 % (2-4); Hematocrit 40.6 % (41-53); Hemoglobin 12.9 g/dL (13.5-17.5); Lymphocytes Absolute Auto 5200 /uL (1100-4500); Lymphocytes Percent Auto 38.8 % (25-40); Mean Corpuscular HGB Conc 31.9 % (30-36); Mean Corpuscular Volume 78.4 fL (80-100); Monocytes Absolute Auto 1400 /uL (0-900); Monocytes Percent Auto 10.4 % (3-14); Neutrophils Absolute Auto 6000 /uL (1500-7000); Neutrophils Percent Auto 44.6 % (50-75); Platelet Count 299 X10^3/uL (150-400); Red Blood Cell Count 5.18 X10^6/uL (4.5-5.9); Red Cell Distribution Width 18.2 % (11.6-14.8); White Blood Cell Count 13.4 X10^3/uL (4.5-11.0)
[2023-03-28 05:45] LABS: INR 1.7 (0.9-1.3); Prothrombin Time 19.9 SECONDS (10.1-12.7)
[2023-03-28] MEDS: SODIUM CHLORIDE 0.9% 1,000 ML 1000 ML IV ×2 (05:45→07:44)
[2023-03-28 05:47] LABS: PTT Partial Thromboplastin Tim 24 SECONDS (26-36)
[2023-03-28 05:51] LABS: Alanine Aminotransferase 98 IU/L (<50); Albumin 4.3 g/dL (3.5-5.0); Alkaline Phosphatase 97 U/L (38-126); Aspartate Aminotransferase 100 IU/L (17-59); BUN Creatinine Ratio 22.3 (6-22); Bilirubin Total 1.2 mg/dL (0.2-1.3); Blood Urea Nitrogen 25 mg/dL (9-20); Calcium 10.1 mg/dL (8.4-10.2); Carbon Dioxide 18 mmol/L (22-32); Chloride 102 mmol/L (98-107); Creatine Kinase 162 U/L (55-170); Estimated Glomerular Filt Rate > 60 mL/min (>60); Globulin 2.2 g/dL (1.7-4.1); Glucose 111 mg/dL (80-110); Lipase 230 U/L (23-300); Magnesium 1.8 mg/dL (1.6-2.3); Potassium 4.4 mmol/L (3.4-5.1); Sodium 136 mmol/L (137-145); Total Protein 6.5 g/dL (6.3-8.2)
[2023-03-28] MEDS: fentaNYL 100 MCG/2 ML INJ 50 MCG IV (05:51)
--- NOTE | 2023-03-28 05:53 | DI.CT.S_ITS ---
PROCEDURE: CT ANGIO CHEST ABDOMEN PELVIS INDICATIONS: chest pain new, back pain last week down belly TECHNIQUE: Precontrast 5 mm thick sections acquired from the lung apices to the iliac crests. After the administration of intravenous contrast, 2.5 mm thick sections again acquired from the lung apices to the iliac crests. Maximum intensity projection (MIP) oblique sagittal and coronal reformats were then acquired. For radiation dose reduction, the following was used: automated exposure control. COMPARISON: None. FINDINGS: Image quality: Excellent. AORTA: No evidence of acute aortic syndrome. No aortic aneurysm. CHEST: Lungs and pleura: No acute airspace opacities. No pleural effusions or pneumothorax. Central and peripheral airways are patent and normal in caliber. 8 x 5 mm solid nodule, right lower lobe (series 8, image 199). Mediastinum: Heart size is enlarged. No pericardial effusion. No mediastinal or hilar adenopathy by size criteria. Central pulmonary arteries are normal in size. Esophagus is normal in caliber. Moderate hiatal hernias. Subcentimeter filling defects within the lower lobes could be motion artifact or subsegmental pulmonary emboli. Bones and chest wall: No axillary adenopathy by size criteria. Thyroid gland is unremarkable. No suspicious bony lesions. No vertebral body compression fractures. ABDOMEN: Vasculature: Celiac trunk and mesenteric arteries are patent. Renal arteries are also patent. Solid organs: Liver is normal in size and enhancement. Gallbladder is unremarkable . Biliary system is non dilated. Pancreas enhances normally. Spleen is normal in size and enhancement. No adrenal nodules. Both kidneys are normal in size and enhancement, without hydronephrosis. Punctate, bilateral nonobstructing stones. Macro no complex Peritoneum and bowel: No free fluid or air. Bowel loops are normal in caliber and wall thickness. Colonic diverticulosis without evidence of diverticulitis. Decompressed sigmoid colon. Nodes and vessels: No retroperitoneal or mesenteric adenopathy by size criteria. Inferior vena cava is normal in morphology. Miscellaneous: No ventral hernias. PELVIS: Genitourinary: Bladder wall thickness is normal. Miscellaneous: No inguinal hernias or adenopathy. Left inguinal hernia containing fluid Bones: No suspicious bony lesions. No vertebral body compression fractures. IMPRESSION: No evidence of acute aortic syndrome. Subsegmental filling defects within the lower lobes, probably artifact of motion artifact, less likely pulmonary emboli. 8 x 5 mm solid nodule in the right lower lobe. Recommend follow-up in 6-12 months. Decompression of the sigmoid colon, with lack of colonic diverticula. Underlying mass not excluded, but no adjacent adenopathy to confirm. Consider colonoscopy if not performed recently. Dictated by: Miguel Galaviz M.D. on 03/28/2023 at 8:02 Approved by: Miguel Galaviz M.D. on 03/28/2023 at 8:20
[2023-03-28 05:55] LABS: D Dimer 615 ng/ml (<500)
--- NOTE | 2023-03-28 05:55 | PC.NURSE ---
Hold on additional dose of nitro SL, due to pt's hypotension. Pt with no relief from nitro. Fentanyl IVP given, see MAR.
[2023-03-28 05:59] LABS: COVID19 -Nasal RAPID Negative (Negative)
[2023-03-28 06:00] LABS: NT-proBNP (BNP-Adult 18+) 41 pg/mL (<125)
[2023-03-28 06:02] LABS: Troponin I < 0.012 ng/mL (0.01-0.034)
[2023-03-28 06:06] LABS: CKMB % Relative Index 1.4 % (1.5-5.0); Creatine Kinase MB 2.25 ng/mL (<2.37); HEMOLYSIS 19 (0-50)
[2023-03-28] MEDS: fentaNYL 100 MCG/2 ML INJ 25 MCG IV (06:09)
[2023-03-28] MEDS: fentaNYL 100 MCG/2 ML INJ 75 MCG IV (06:33)
--- NOTE | 2023-03-28 06:36 | PC.NURSE ---
notified of low diastolic and widening pulse pressure.
[2023-03-28 08:39] LABS: Lactate (Lactic Acid) 5.7 mmol/L (0.7-2.1)
[2023-03-28] MEDS: cefTRIAXone 1,000 MG in SODIUM CHLORIDE 0.9% 100 ML 200 MG IV (08:49)
[2023-03-28 08:57] LABS: Procalcitonin 0.13 ng/mL (<0.5)
[2023-03-28 09:14] LABS: Ictotest Urine Negative (Negative); RBC Urine 0-1/HPF (0-5/HPF); WBC Urine 0-1/HPF (0-5/HPF)
[2023-03-28 09:15] LABS: Bacteria Urine None Seen; Culture Indicated Urine Cult Not Indicated; Squamous Epithelial Cell Urine 0-1 /HPF (0-5/HPF)
[2023-03-28 10:23] LABS: Reflexed Lactate in 2 Hours Y
[2023-03-28] MEDS: SODIUM CHLORIDE 0.9% 1,000 ML 125 ML IV (10:25)
[2023-03-28] MEDS: VANCOMYCIN 1,000 MG/200 ML PIGGYBACK 200 MG IV (10:25)
--- NOTE | 2023-03-28 10:37 | DI.ECHO.S_ITS ---
[place] +---------+ [facility] +---------+ : : [address] : : : : [id number] : : : : Phone: [phone]+ Echocardiogram Report + + :Name: ARELI RODRIGUEZ Study Date: 03/28/2023 Height: 65 in : :[facility] ReadingLocation: Weight: 165 lb : : Gender: Male BSA: 1.8 m2 : :: 1950 Age: 72 yrs BP: 101/52 mmHg: :Reason For Study: CHEST PAIN : :Ordering Physician: MARIELLA, : :DESTINEY Performed By: Lauryn Garcia : :Referring: DESTINEY WOLFF : + + Interpretation Summary 1) Normal left ventricular size and thickness with hyperdynamic systolic function (EF over 80%). 2) Normal right ventricular size with hyperdynamic function. 3) No signifcant valvular abnormaltiies. 4) No prior Echo available for comparison. Procedure: A two-dimensional transthoracic echocardiogram with color flow and Doppler was performed. The study quality was technically good. There is no prior echocardiogram noted for this patient. The patient was in sinus rhythm with heart rates between 89-95 bpm during the exam. Left Ventricle: The left ventricle is normal in size. There is normal left ventricular wall thickness. Proximal septal thickening is noted. The ejection fraction is estimated to be >80%. The left ventricle is markedly hyperdynamic. There are no focal wall motion abnormalities. Right Ventricle: The right ventricle is normal size. The right ventricle is hyperdynamic. Atria: The left atrium is moderately dilated. Right atrial size is normal. The right atrium is mildly dilated. There is no Doppler evidence for an interatrial shunt. Mitral Valve: The mitral valve leaflets appear mildly thickened, but open well. There is mild mitral regurgitation. Aortic Valve: The aortic valve is trileaflet. The aortic valve is slightly calcified. The aortic valve opens well. There is no aortic valve stenosis. No aortic regurgitation is present. Tricuspid Valve: The tricuspid valve leaflets are thin and pliable. There is a trace or physiologic amount of tricuspid regurgitation. Pulmonary artery pressures cannot be estimated because of the lack of a measurable TR jet velocity. Pulmonic Valve: The pulmonic valve leaflets are thin and pliable; valve motion is normal. There is trace pulmonic regurgitation. Great Vessels: The aortic root is normal size. The ascending aorta is at the upper limits of normal in size. The IVC is of normal diameter and collapses greater than 50% with a sniff. This suggests a low right atrial pressure of 3 mm Hg. Pericardium/ Pleura There is no pericardial effusion. There is no pleural effusion. MMode/2D Measurements & Calculations LVIDd: 5.0 cm LVOT diam: 2.0 cm LVIDs: 2.1 cm Ao root diam: 3.0 cm FS: 58.1 % asc Aorta Diam: 3.9 cm IVSd: 1.1 cm Ao Arch Diam (Prox Trans): 3.3 cm LVPWd: 0.87 cm LV espinoza. diameter/BSA (cm/m^2): 2.7 LV sys. diameter/BSA (cm/m^2): 1.2 LA A2 area: 22.1 cm2 RA long axis: 5.5 cm LA A4 area: 21.1 cm2 RA area: 19.5 cm2 LA length (vol): 5.6 cm RA vol: 58.4 ml LA vol: 70.5 ml RA : 32.1 ml/m2 LA vol index: 38.7 ml/m2 IVC diam: 1.5 cm RVD1 (basal): 4.0 cm TAPSE: 2.8 cm Doppler Measurements & Calculations Ao V2 max: 272.0 cm/sec MV E max gene: 103.5 cm/sec Ao V2 mean: 199.4 cm/sec MV A max gene: 135.2 cm/sec Ao max P.6 mmHg MV E/A: 0.77 Ao mean P.6 mmHg Med Peak E' Gene: 7.4 cm/sec Ao V2 VTI: 45.5 cm E/E' med: 13.9 Lat Peak E' Gene: 13.2 cm/sec E/E' lat: 7.8 E/e' average: 10.9 MV dec time: 0.15 sec PA V2 max: 175.6 cm/sec PA V2 mean: 139.0 cm/sec PA mean P.3 mmHg Reading Physician:11:[id number] AM
[2023-03-28 10:59] LABS: Creatine Kinase 142 U/L (55-170)
[2023-03-28 11:15] LABS: CKMB % Relative Index 2.4 % (1.5-5.0); Creatine Kinase MB 3.47 ng/mL (<2.37)
[2023-03-28 11:33] LABS: Troponin I 0.256 ng/mL (0.01-0.034)
[2023-03-28] MEDS: HEPARIN 5,000 UNIT/ML VIAL 4000 UNIT IV (11:40)
[2023-03-28] MEDS: HEPARIN DRIP 25,000 UNIT/500 ML IV.SOLN 17.962 UNIT IV (11:43)
[2023-03-28 11:44] LABS: C-Reactive Protein Quant < 0.5 mg/dL (<1.0)
[2023-03-28 12:06] LABS: Erythrocyte Sedimentation Rate 1 MM/HR (0-15)
[2023-03-28 16:12] LABS: Creatine Kinase 181 U/L (55-170)
[2023-03-28 16:40] LABS: Troponin I 0.639 ng/mL (0.01-0.034)
[2023-03-28 16:42] LABS: Lactate (Lactic Acid) 9.3 mmol/L (0.7-2.1)
[2023-03-28 17:29] LABS: PTT Partial Thromboplastin Tim 67 SECONDS (26-36)
[2023-03-28 17:36] LABS: CKMB % Relative Index 2.5 % (1.5-5.0); Creatine Kinase MB 4.46 ng/mL (<2.37)
[2023-03-28 17:42] LABS: Reflexed Lactate in 2 Hours Y
[2023-04-03 14:13] LABS: Lactate 2HR (Lactic Acid Rflx) 13.9 mmol/L (0.7-2.1)
== END 2023-03-28 19:02 | disposition short-term general hospital (02) ==
PROVIDERS: Emergency Medicine; Emergency Provider Emergency Medicine
DX: I21.4 Non-ST elevation (NSTEMI) myocardial infarction (principal); R91.1 Solitary pulmonary nodule; R07.9 Chest pain, unspecified; R79.89 Other specified abnormal findings of blood chemistry; Z79.01 Long term (current) use of anticoagulants; Z20.822 Contact with and (suspected) exposure to COVID-19
CPT/HCPCS: 36415; 71045; 71275; 74174; 80053; 81003; 81015; 82550; 82553; 83605; 83690; 83735; 83880; 84145; 84484; 85025; 85379; 85610; 85651; 85730; 86140; 86850; 86900; 86901; 87040; 87086; 87635; 93005; 93306; 96361; 96365; 96366; 96367; 96375; 96376; 99284; 99285; C9803; J0696; J1644; J3010; Q9967